=== PATIENT | male | born 1955 | race American Indian/Alaskan Native ===

== ENCOUNTER 2018-02-25 14:30 | Emergency (ER) | payer SELFPAY ==
[2018-02-25 14:38] VITALS: BP 174/93
[2018-02-25] MEDS ORDERED: LOVENOX SUB-Q ONE (15:12)
--- NOTE | 2018-02-25 15:18 | Emergency Department Report ---
ED General Adult HPI - General Chief complaint: Extremity Injury, Lower Stated complaint: RIGHT LEG PAIN Time Seen by Provider: 02/25/18 15:06 Source: patient Mode of arrival: Ambulatory Limitations: No Limitations - History of Present Illness Initial comments: 62 yo male presents with right leg swelling for 5 days after a 12 hour car ride. He denies pain. He is concerned for gout. He has had leg clot and possibly PE in the past. Denies chest pain or dyspnea. Denies any other symptoms. Gradual onset of symptoms. NO change with movement. - Related Data Previous Rx's Medication Instructions Recorded Last Taken Type HYDROcodone/APAP 5-325 [[place] 1 each PO Q6HR PRN #16 tablet 12/16/13 Unknown Rx 5/325 mg] Ciprofloxacin HCl [Cipro] 500 mg PO Q12H #20 tab 03/16/14 Unknown Rx Acetaminophen/Codeine [Tylenol #3] 1 tab PO Q6H PRN #15 tab 07/26/15 Unknown Rx Allopurinol [Zyloprim] 100 mg PO QDAY #20 tablet 07/26/15 Unknown Rx Indomethacin Sr (Nf) [Indocin Sr] 75 mg PO Q12HR #20 capsule.er 07/26/15 Unknown Rx Gabapentin [Gralise] 300 mg PO TID #90 tab.er.24h 10/03/15 Unknown Rx Prednisone [predniSONE 10 mg 10 mg PO .TAPER #1 tab.ds.pk 10/03/15 Unknown Rx (6-Day Pack, 21 Tabs)] oxyCODONE /ACETAMINOPHEN [Percocet 1 tab PO Q6HR PRN #14 tablet 10/03/15 Unknown Rx 5/325 mg] Allergies Allergy/AdvReac Type Severity Reaction Status Date / Time No Known Allergies Allergy Verified 07/26/15 10:07 ED Review of Systems ROS: Stated complaint: RIGHT LEG PAIN Other details as noted in HPI Comment: All other systems reviewed and negative Constitutional: denies: fever Respiratory: denies: cough Cardiovascular: denies: chest pain, dyspnea on exertion ED Past Medical Hx - Past Medical History Hx Hypertension: Yes Hx Pulmonary Embolism: Yes Hx Arthritis: Yes Additional medical history: Blood clot in chest Unsure of when . GOUT - Surgical History Past Surgical History?: No Additional Surgical History: heart catheterization - Social History Smoking Status: Never Smoker Substance Use Type: None - Medications Home Medications: Home Medications Medication Instructions Recorded Confirmed Last Taken Type HYDROcodone/APAP 5-325 [[place] 1 each PO Q6HR PRN #16 tablet 12/16/13 Unknown Rx 5/325 mg] Ciprofloxacin HCl [Cipro] 500 mg PO Q12H #20 tab 03/16/14 Unknown Rx Acetaminophen/Codeine [Tylenol #3] 1 tab PO Q6H PRN #15 tab 07/26/15 Unknown Rx Allopurinol [Zyloprim] 100 mg PO QDAY #20 tablet 07/26/15 Unknown Rx Indomethacin Sr (Nf) [Indocin Sr] 75 mg PO Q12HR #20 capsule.er 07/26/15 Unknown Rx Gabapentin [Gralise] 300 mg PO TID #90 tab.er.24h 10/03/15 Unknown Rx Prednisone [predniSONE 10 mg 10 mg PO .TAPER #1 tab.ds.pk 10/03/15 Unknown Rx (6-Day Pack, 21 Tabs)] oxyCODONE /ACETAMINOPHEN [Percocet 1 tab PO Q6HR PRN #14 tablet 10/03/15 Unknown Rx 5/325 mg] ED Physical Exam - General Limitations: No Limitations General appearance: alert, in no apparent distress - Head Head exam: Present: atraumatic, normocephalic - ENT ENT exam: Present: normal orophraynx - Respiratory Respiratory exam: Present: normal lung sounds bilaterally - Cardiovascular Cardiovascular Exam: Present: regular rate, normal rhythm, normal heart sounds - GI/Abdominal GI/Abdominal exam: Present: soft. Absent: distended, tenderness, guarding, rebound - Neurological Exam Neurological exam: Present: alert, oriented X3 - Psychiatric Psychiatric exam: Present: normal affect, normal mood - Skin Skin exam: Present: warm, dry, intact, normal color - Other Other exam information: global swelling of right lower extremity from foot to thigh, intact pedal pulse , warm skin ED Course Vital Signs 02/25/18 14:35 Temperature 97.8 F Pulse Rate 76 Respiratory 18 Rate Blood Pressure 174/93 O2 Sat by Pulse 97 Oximetry ED Medical Decision Making - Medical Decision Making my initial clinical impression was DVT. However duplex ultrasound is negative for DVT. Due to 24 hours of long distance travel by car, patient likely has dependent edema. However it is peculiar that the edema is unilateral. Patient understands to return to the ER 1 week for repeat ultrasound if the swelling persists. He also understands return precautions or chest pain or shortness of breath Critical care attestation.: If time is entered above; I have spent that time in minutes in the direct care of this critically ill patient, excluding procedure time. ED Disposition Clinical Impression: Dependent edema, Lower extremity edema Disposition: [id number] TO HOME OR SELFCARE Is pt being admited?: No Does the pt Need Aspirin: No Condition: Stable Instructions: Leg Edema (ED) Referrals: PRIMARY CARE, [Primary Care Provider] - 3-5 Days [facility] [Outside] - 3-5 Days Time of Disposition: 16:28
[2018-02-25] MEDS ORDERED: ELIQUIS PO ONE (15:20)
--- NOTE | 2018-02-27 12:42 | Vascular Lab Report ---
Right Lower Extremity Venous Duplex Study: Reason for Exam: Deep venous thrombosis. Comments on the Right: All veins visualized are freely compressible without evidence of internal echogenicity. Flow is spontaneous and phasic throughout. No evidence of acute or chronic thrombus is seen in any of the vessels visualized. Comments on the Left: A limited duplex study was done of the proximal veins of the left lower extremity. All veins visualized are freely compressible without evidence of internal echogenicity. Flow is spontaneous and phasic throughout. No evidence of acute or chronic thrombus is seen in any of the vessels visualized. Impression: No evidence of acute or chronic deep venous thrombosis in the right lower extremity.
== END 2018-02-25 16:34 | disposition home or self-care (01) ==
LOC: ED 14:30
DX: R60.0 Localized edema (principal); I10 Essential (primary) hypertension; M19.90 Unspecified osteoarthritis, unspecified site; Z86.711 Personal history of pulmonary embolism

== ENCOUNTER 2020-05-15 11:36 | Emergency (ER) | payer MEDICARE, OTHER ==
[2020-05-15 11:44] VITALS: BP 129/70
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
[2020-05-15] MEDS ORDERED: LIDOCAINE (1%) 10 MG/1 ML VIAL 20 ML MDV INFILTRATI ONE (13:10)
[2020-05-15] MEDS ORDERED: SODIUM CHLORIDE IRRI 500 ML 0 ML IR ONE (13:19)
--- NOTE | 2020-05-15 13:28 | XRay Report ---
RIGHT HAND 3 VIEWS INDICATION / CLINICAL INFORMATION: hand injury COMPARISON: 12/16/2013 FINDINGS: BONES / JOINT(S): No acute fracture or subluxation. There is degenerative change in the thumb carpal metacarpal joint. There is a lucent lesion in the pr oximal aspect of the proximal phalanx of the right thumb which is new since 2013. An erosion may be r elated to degenerative change in the thumb. SOFT TISSUES: No significant abnormality. ADDITIONAL FINDINGS: None. Signer Name: Luis A Gates MD Signed: 05/15/2020 1:24 PM Workstation Name: [id number]
== END 2020-05-15 14:00 | disposition home or self-care (01) ==
LOC: ED 11:36
DX: S61.411A Laceration without foreign body of right hand, initial encounter (principal); R93.7 Abnormal findings on diagnostic imaging of other parts of musculoskeletal system; I10 Essential (primary) hypertension; M19.91 Primary osteoarthritis, unspecified site; Z86.711 Personal history of pulmonary embolism; Z98.890 Other specified postprocedural states; Z79.2 Long term (current) use of antibiotics; Z79.899 Other long term (current) drug therapy; V89.2XXA Person injured in unspecified motor-vehicle accident, traffic, initial encounter; Y93.89 Activity, other specified; Y92.410 Unspecified street and highway as the place of occurrence of the external cause; Y99.8 Other external cause status